=== PATIENT | female | born 1990 | race African-American/Black ===

== ENCOUNTER 2023-09-08 20:40 | Emergency (ER) | payer MEDICAID, OTHER ==
[~2023-09-08] VITALS: Ht 144.8 cm; Wt 58.0 kg
[2023-09-08 20:55] VITALS: O2SAT 100
[2023-09-08] MEDS ORDERED: METH-653 MT (21:39)
[2023-09-08] MEDS: ACETAMINOPHEN 325MG TABLET PO ONE (21:45)
[2023-09-08 22:27] VITALS: BP 135/47; PULSE 71; RESP 16; TEMP 98.1
== END 2023-09-08 22:29 | disposition home or self-care (01) ==
LOC: ER 20:40
DX: M54.2 Cervicalgia (principal); M54.50 Low back pain, unspecified; F12.10 Cannabis abuse, uncomplicated; V49.59XA Passenger injured in collision with other motor vehicles in traffic accident, initial encounter; Y93.89 Activity, other specified; Y92.89 Other specified places as the place of occurrence of the external cause; Y99.8 Other external cause status
CPT/HCPCS: 99283